=== PATIENT | male | born 1980 | race Native Hawaiian/Other Pacific Islander ===

== ENCOUNTER → 2022-03-02 13:11 | Outpatient (BNVA) | payer OTHER, SELFPAY | PROVIDERS: Visit Provider Internal Medicine | DX: S63.642A Sprain of metacarpophalangeal joint of left thumb, initial encounter (principal); X50.0XXA Overexertion from strenuous movement or load, initial encounter | CPT/HCPCS: 73130; 99203 ==

== ENCOUNTER → 2022-03-12 15:01 | Outpatient (BNVA) | payer OTHER, SELFPAY | PROVIDERS: Visit Provider Physician Assistant | DX: S63.642D Sprain of metacarpophalangeal joint of left thumb, subsequent encounter (principal); X58.XXXD Exposure to other specified factors, subsequent encounter | CPT/HCPCS: 29125; 99214 ==

== ENCOUNTER → 2022-04-09 14:33 | Outpatient (BNVA) | payer OTHER, SELFPAY | PROVIDERS: Visit Provider Physician Assistant | DX: S63.642D Sprain of metacarpophalangeal joint of left thumb, subsequent encounter (principal); X50.0XXD Overexertion from strenuous movement or load, subsequent encounter | CPT/HCPCS: 99213 ==

== ENCOUNTER → 2022-04-24 07:52 | Outpatient (BNVA) | payer OTHER, SELFPAY | PROVIDERS: Visit Provider Internal Medicine | DX: S63.602D Unspecified sprain of left thumb, subsequent encounter (principal); X50.0XXD Overexertion from strenuous movement or load, subsequent encounter | CPT/HCPCS: 99213 ==

== ENCOUNTER 2022-05-08 11:00 | Outpatient (RCR) | payer OTHER, SELFPAY ==
--- NOTE | 2022-03-20 16:20 | MHC.OT.OEV ---
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 Pt reported the injury the next day. He was seen in [facility] on 03/02/22, an XR was taken and shows a normal left hand Pt was issued a thumb spica splint he is using at work.. 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 Lifting up to 30 lb occassional Frequent trimming with scissors and defoliating plants Enjoys cooking Living Situation, Family and/or Social Support: Family Current Level of Function and Occupation Self Care, Employment, Leisure: Pain pulling on clothes, discomfort with buttons, light pinch Difficulty with dishes, and food prep Using right hand with heavy house avoiding left hand with any heavy use Sleep: WNL Driving: Not driving now Vision: Balance: Pain Assessment Pain Score: 7 Pain Scale Used: Numeric (0 - 10) Pain Location and Description: low to moderate achy, 1-7 Aggravating Factors: Gripping ,pinch and bending thumb Alleviating Factors: Skin and Soft Tissue Assessment Skin and Soft Tissue: Swelling Comments: Left thumb MPj effusion Nerve assessment Ulnar Nerve: Median Nerve: Radial Nerve: Comments: Sensory Assessment Temperature: Light Touch: WFL Proprioception: Vibration: Comments: Edema Assessment Upper Extremity: Lower Extremity: Comments: Mild MP j effusion Dexterity Assessment Dexterity: Comments: Discomfort Special Tests Comments: AROM(PROM) Strength Cervical Cervical Flexion: Cervical Extension: Cervical Lateral Flexion: Cervical Rotation: Comments: Shoulder Flexion: Extension: Abduction: Internal Rotation: External Rotation: Comments: Flexion: Extension: Abduction: Internal Rotation: External Rotation: Comments: Elbow Flexion: Extension: Pronation: Supination: Comments: Flexion: Extension: Pronation: Supination: Comments: Wrist Flexion: Extension: Ulnar Deviation: Radial Deviation: Comments: Flexion: Extension: Ulnar Deviation: Radial Deviation: Comments: Thumb Thumb CMC Flexion: Thumb MCP Flexion: Thumb IP Flexion: Radial Abduction: 40 deg Palmar Abduction: Winston (Kapandji 0-10): R 9 L 8 Comments: Digits Index MCP: PIP: DIP: Long MCP: PIP: DIP: Ring MCP: PIP: DIP: Small MCP: PIP: DIP: Comments: Gross Grasp: Lateral Pinch: Two-Point Pinch: Three-Jaw Rey: Comments: Deferred Patient Education Primary Language: Slovak Eeg Tech Required: No Current Knowledge: Minimal, needs reinforcement Teaching Method: Verbal Education Needs Identified on Evaluation: ADL's Exercise How did patient/family demonstrate learning? Patient demonstrates Patient verbalizes Barriers to Learning: None Readiness for Learning: Accepting Who was educated? Patient Comments: Plan of Care Assessment: Pt is a 41 yo male 3 wks s/p left thumb MPj strain at work. Pt presents with compliant of low to moderate thumb pain with protected use. Mild MPj effusion noted. He reports a 20% limitation with daily activities based on his Quick DASH score. Pt will benefit from con't wear of a hand based thumb spica for protection and begin ROM and light functional activity to promote healing and return of left hand function. STG Duration: 3 wks Short Term Goals: Demo indep with HEP Dec pain to < 5/10 occasional with jt protection as needed Demo indep with pt protection tech with daily activities as needed Quick DASH score to <15 pts LTG Duration: 3 wks Retirement Goals: Same as above Frequency and Duration: The patient will be seen 2x wk x 3 xks Treatment Plan: Therapeutic Exercise Therapeutic Activity Home Exercise Program Splinting Patient Education ADL Training Paraffin Fluidotherapy Electronically Signed By: Huyen Dubose OT CHT CLT Reviewed/agree with student documentation: N/A Therapist: Please sign and return to therapist, Thank you for your referral.
== END 2022-05-19 16:32 | disposition home or self-care (01) ==
LOC: HO.OT 11:00
PROVIDERS: Visit Provider Physician Assistant
DX: S63.642A Sprain of metacarpophalangeal joint of left thumb, initial encounter (principal)
CPT/HCPCS: 29130; 97035; 97110; 97165; 97760

== ENCOUNTER → 2022-05-08 14:10 | Outpatient (BNVA) | payer OTHER, SELFPAY | PROVIDERS: Visit Provider Internal Medicine | DX: S63.642D Sprain of metacarpophalangeal joint of left thumb, subsequent encounter (principal); W50.0XXD Accidental hit or strike by another person, subsequent encounter | CPT/HCPCS: 99213 ==

== ENCOUNTER → 2022-05-11 12:58 | Outpatient (BNVA) | payer OTHER, SELFPAY | PROVIDERS: Visit Provider Physician Assistant | DX: S63.621A Sprain of interphalangeal joint of right thumb, initial encounter (principal) | CPT/HCPCS: 99202 ==

== ENCOUNTER → 2022-06-08 14:40 | Outpatient (BNVA) | payer OTHER, SELFPAY | PROVIDERS: Visit Provider Physician Assistant | DX: S63.622A Sprain of interphalangeal joint of left thumb, initial encounter (principal); M24.20 Disorder of ligament, unspecified site | CPT/HCPCS: 99212 ==

== ENCOUNTER 2022-06-18 10:20 | Outpatient (REF) | payer OTHER, SELFPAY ==
[2022-06-18 11:57] LABS: COVID-19 Test Negative (Negative); IDNOW Serial# 16C4AD1C
== END 2022-06-18 10:21 | disposition home or self-care (01) ==
LOC: HO.LAB 10:20
PROVIDERS: Visit Provider Internal Medicine
DX: Z20.822 Contact with and (suspected) exposure to COVID-19 (principal)
CPT/HCPCS: 87635; C9803

== ENCOUNTER 2022-07-07 10:36 | Outpatient (REF) | payer OTHER, SELFPAY ==
--- NOTE | ~2022-07-07 | XR_ITS ---
EXAMINATION: XR HAND, LEFT CLINICAL INFORMATION: Pain COMPARISON: None TECHNIQUE: PA, lateral, and oblique views of the left hand. FINDINGS: No acute fracture or dislocation. Joint spaces are maintained. Soft tissues are unremarkable. Periarticular cortical erosions noted at the base of the first proximal phalanx and the head of the first metacarpal. XR/XR hand LT min 3V IMPRESSION: Periarticular cortical erosions at the first metacarpophalangeal joint which could be seen in the setting of erosive arthropathy including rheumatoid arthritis or crystal arthropathies.
== END 2022-07-07 10:37 | disposition home or self-care (01) ==
LOC: HO.HOSX 10:36
PROVIDERS: Visit Provider Orthopaedic Surgery
DX: M79.642 Pain in left hand (principal)
CPT/HCPCS: 73130